=== PATIENT | female | born 1950 | race Caucasian/White ===

== ENCOUNTER → 2018-08-10 | Outpatient (CLI) | payer MEDICARE, OTHER | LOC: M WUC 11:09 | DX: M17.12 Unilateral primary osteoarthritis, left knee (principal) | CPT/HCPCS: 73564 ==

== ENCOUNTER → 2019-05-16 | Outpatient (CLI) | payer MEDICARE ==
[~2019-05-16] MED LIST: ACET65TA OR; ADVA1AER2 IN; AMBI10TA OR; ATIV1TAB2 OR; ECOT325T5 OR; LISI10TA4 OR; LISI5TAB OR; LOPR50TA OR; METO25TA2 OR; PRAV1TAB39 OR; PRILOSEC PO; VITA-113 IM; WELL100T2 OR; ZOLO100T OR
--- NOTE | 2019-05-16 13:36 | REP ---
Clinical: Cough. Technique: PA and lateral. Comparison: 05/09/2011. Findings: Mediastinum and cardiac silhouette are normal. Lung brooks demonstrate chronic interstitial changes and findings to suggest mild perihilar bronchiectasis. Subtle basilar atelectasis (right greater than left) cannot be excluded. No pneumothorax. Skeletal structures demonstrate age-related degenerative changes. Impression: Chronic interstitial changes and mild/moderate perihilar bronchiectasis suggested. Subtle basilar atelectasis cannot be excluded. If the patient remains symptomatic consider chest CT for further investigation. Electronically Signed by Bruce Sevilla MD 05/16/2019 01:27 P
== END ==
LOC: M WUC 13:11
PROVIDERS: ATTEND Physician Assistant
DX: R05 Cough (principal)

== ENCOUNTER → 2019-05-24 | Outpatient (CLI) | payer MEDICARE ==
--- NOTE | 2019-05-24 21:51 | REP ---
Clinical: Chest pain. Pneumonia. Comparison: 05/16/2019 . Technique: PA and lateral. Findings: The mediastinum and cardiac silhouette are normal. The lung brooks demonstrate chronic stable changes without acute consolidation, effusion, or pneumothorax. Previous basilar atelectasis appears to have resolved. The skeletal structures are intact and normal. Impression: 1. No acute cardiopulmonary process. Electronically Signed by Bruce Sevilla MD 05/24/2019 09:42 P
== END ==
LOC: M WUC 10:21
PROVIDERS: ATTEND Physician Assistant
DX: J18.9 Pneumonia, unspecified organism (principal)

== ENCOUNTER → 2020-04-03 | Outpatient (REF) | payer MEDICARE | LOC: M WUC 13:04 | PROVIDERS: ATTEND Nurse Practitioner Family | DX: Z20.828 Contact with and (suspected) exposure to other viral communicable diseases (principal) | CPT/HCPCS: 87502; U0003 ==

== ENCOUNTER 2021-07-18 16:40 | Emergency (ER) | payer MEDICARE ==
[~2021-07-18] VITALS: Ht 149.9 cm; Wt 57.7 kg
[2021-07-18] MEDS ORDERED: OXYCODONE/APAP 5MG/325MG(BULK FOR ED) 1 TABLET PO ONE (21:35)
[2021-07-18] MEDS ORDERED: PERC5TAB12 PO (21:41)
[2021-07-18 22:01] VITALS: BP 123/77
== END 2021-07-18 22:03 | disposition home or self-care (01) ==
LOC: M ED 16:40
DX: S32.000A Wedge compression fracture of unspecified lumbar vertebra, initial encounter for closed fracture (principal); X58.XXXA Exposure to other specified factors, initial encounter; Y92.099 Unspecified place in other non-institutional residence as the place of occurrence of the external cause; Y93.9 Activity, unspecified; Y99.9 Unspecified external cause status; Z79.82 Long term (current) use of aspirin; Z79.899 Other long term (current) drug therapy; Z88.0 Allergy status to penicillin

== ENCOUNTER → 2021-07-24 | Outpatient (CLI) | payer MEDICARE ==
[~2021-07-24] MED LIST changes: +PERC5TAB12 PO
--- NOTE | 2021-07-24 13:46 | REP ---
INDICATION: LUMBAR VERTEBRA FX. COMPARISON: CT 07/18/2021. TECHNIQUE: Three views lumbosacral spine. FINDINGS: There is mild compression deformity of L1. No other compression deformity is seen. There is mild anterolisthesis of L3 on L4 likely due to posterior facet arthropathy. There is mild diffuse spurring. There is mild disc space narrowing at all levels, with a more moderate degree of disc space narrowing and subchondral sclerosis at L4-5 and L5-S1. There is also mild vacuum phenomenon at L4-5 and L5-S1. There is diffuse sclerosis and spurring at the posterior facet joints. There is curvature toward the left. The posterior elements appear intact. IMPRESSION: Mild compression deformity of L1 of indeterminate age. Diffuse degenerative changes, most significantly at L4-5 and L5-S1 levels. <Electronically signed by Thor Mendez > 07/24/21 [id number]
== END ==
LOC: M SOG 13:20
PROVIDERS: ATTEND Orthopaedic Surgery
DX: S32.010A Wedge compression fracture of first lumbar vertebra, initial encounter for closed fracture (principal); X58.XXXA Exposure to other specified factors, initial encounter; Y92.9 Unspecified place or not applicable; Y99.9 Unspecified external cause status; Y93.9 Activity, unspecified; M51.36 Other intervertebral disc degeneration, lumbar region; M51.37 Other intervertebral disc degeneration, lumbosacral region